=== PATIENT | female | born 2000 | race Caucasian/White ===

== ENCOUNTER → 2021-01-26 | Outpatient (CLI) | payer OTHER | END | disposition home or self-care (01) | LOC: LABMN 13:30 | PROVIDERS: ATTEND Internal Medicine | DX: Z02.1 Encounter for pre-employment examination (principal) | CPT/HCPCS: 86706; 86735; 86762; 86765; 86787 ==

== ENCOUNTER 2021-04-01 05:11 | Emergency (ER) | payer OTHER ==
[~2021-04-01] VITALS: Ht 152.4 cm; Wt 82.7 kg
[2021-04-01 05:45] VITALS: BP 123/85
== END 2021-04-01 06:15 | disposition home or self-care (01) ==
LOC: EMS 05:11
DX: N61.1 Abscess of the breast and nipple (principal)
CPT/HCPCS: 99283; Z7502